=== PATIENT | female | born 1990 | race Two or more races ===

== ENCOUNTER 2017-04-21 06:44 | Inpatient (IN) | payer BC ==
[2017-04-21] MEDS ORDERED: Nalbuphine 20 MG/1 ML Amp IVPUSH PRN (06:47)
[2017-04-21] MEDS ORDERED: Sodium Chloride 0.9% 10 ML Syringe FLUSH PRN (06:47)
[2017-04-21] MEDS ORDERED: Ondansetron 4 MG/2 ML SDV IVPUSH PRN (06:47)
--- NOTE | 2017-04-21 06:56 | PCM.LDHP ---
L&D History of Present Illness - General Date of Service: 04/21/17 Admit Problem/Dx: Patient Status Order with Admit Dx/Problem 04/21/17 06:48 Patient Status [ADT] Routine Admission Diagnosis/Problem Admission Diagnosis/Problem Normal Source of Information: Patient History Limitations: Reports: No Limitations - History of Present Illness Introduction:: Patient is a 26 y/o at 39 2/7 wks who presents for elective IOL. Doing well today. No major concerns or complaints. 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 LMP (Approximate): - Past Surgical History HEENT Surgical History: Reports: Oral Surgery Female Surgical History: Reports: Breast Implant Social & Family History - Tobacco Use Smoking Status *Q: Never Smoker Second Hand Smoke Exposure: No - Alcohol Use Alcohol Use History: No Days Per Week of Alcohol Use: 0 - Recreational Drug Use Recreational Drug Use: No H&P Review of Systems - Review of Systems: Review Of Systems: See Below General: Reports: No Symptoms Pulmonary: Reports: No Symptoms Cardiovascular: Reports: No Symptoms Gastrointestinal: Reports: No Symptoms Genitourinary: Reports: No Symptoms Musculoskeletal: Reports: No Symptoms Neurological: Reports: No Symptoms L&D Exam - Exam Exam: See Below - Vital Signs Weight: 64.864 kg - OB Specific Contraction Intensity: Irritability Movement: Active Heart Tones: Present Heart Tones per Min: 140 Heart Rate (FHR) Variability: Moderate (6-25 bmp) Presentation: Vertex - Christy Score Christy Score Cervix Position: Posterior Christy Score Consistency: Soft Christy Score Effacement: 31-50% Christy Score Dilation: 1-2 cm Christy Score Infant's Station: -2 Christy Score Total: 5 - Exam General: Alert, Oriented, Cooperative Lungs: Clear to Auscultation, Normal Respiratory Effort Cardiovascular: Regular Rate, Regular Rhythm Abdomen: Soft Genitourinary: Normal external exam Extremities: Normal Inspection Skin: Warm, Dry, Intact - Patient Data Result Diagrams: 04/21/17 07:25 - Problem List (1) 39 weeks gestation of SNOMED Code(s): 13291257 ICD Code: Z3A.39 - 39 WEEKS GESTATION OF Status: Acute Current Visit: Yes (2) Elective induction of labor planned SNOMED Code(s): 842484306 ICD Code: [id number] - Status: Acute Current Visit: Yes Problem List Initiated/Reviewed/Updated: Yes Orders Last 24hrs: Active Orders 24 hr Category Date Time Status Patient Status [ADT] Routine ADT 04/21/17 06:48 Ordered Activity as Tolerated [RC] PFP Care 04/21/17 06:48 Ordered Communication Order [RC] ASDIRECTED Care 04/21/17 06:48 Ordered Communication Order [RC] ASDIRECTED Care 04/21/17 06:48 Ordered Communication Order [RC] ASDIRECTED Care 04/21/17 06:48 Ordered Heart Tones [RC] ASDIRECTED Care 04/21/17 06:48 Ordered Notify Provider [RC] ASDIRECTED Care 04/21/17 06:48 Ordered Notify Provider [RC] PRN Care 04/21/17 06:48 Ordered Peripheral IV Care [RC] . DIRECTED Care 04/21/17 06:48 Ordered Vaginal Exam [RC] ASDIRECTED Care 04/21/17 06:48 Ordered Vital Signs [RC] ASDIRECTED Care 04/21/17 06:48 Ordered Vital Signs [RC] PER UNIT ROUTINE Care 04/21/17 06:48 Ordered Regular Diet [DIET] Diet 04/21/17 Breakfast Ordered CBC W/O DIFF,HEMOGRAM [HEME] Timed Lab 04/21/17 07:45 Ordered TYPE AND SCREEN [BBK] Timed Lab 04/21/17 07:45 Ordered Lactated Ringers [Ringers, Lactated] 1,000 ml Med 04/21/17 07:00 Ordered IV ASDIRECTED Nalbuphine [Nubain] Med 04/21/17 06:47 Ordered 10 mg IVPUSH Q2H PRN Ondansetron [Zofran] Med 04/21/17 06:47 Ordered 4 mg IVPUSH Q4H PRN Oxytocin/Lactated Ringers [Pitocin in LR 10 Units/1,000 Med 04/21/17 07:00 Ordered ML] 10 unit in 1,000 ml IV TITRATE Oxytocin/Lactated Ringers [Pitocin in LR 10 Units/1,000 Med 04/21/17 07:00 Ordered ML] 10 unit in 1,000 ml IV TITRATE Sodium Chloride 0.9% [Saline Flush] Med 04/21/17 06:47 Ordered 10 ml FLUSH ASDIRECTED PRN Electronic Heart Tones Ext w TOCO [WOMSER] Oth 04/21/17 06:48 Ordered Routine Electronic Heart Tones Internal [WOMSER] Per Unit Oth 04/21/17 06:48 Ordered Routine Peripheral IV Insertion Adult [OM.PC] Routine Oth 04/21/17 06:48 Ordered Resuscitation Status Routine Resus Stat 04/21/17 06:47 Ordered Medication Orders Lactated Ringer's (Ringers, Lactated) 1,000 mls @ 40 mls/hr IV ASDIRECTED AMANDA Oxytocin/Lactated Ringer's (Pitocin In Lr 10 Units/1,000 Ml) 10 unit in 1,000 mls @ 500 mls/hr IV TITRATE AMANDA PRN Reason: Protocol Nalbuphine HCl (Nubain) 10 mg IVPUSH Q2H PRN PRN Reason: Pain (moderate 4-6) Ondansetron HCl (Zofran) 4 mg IVPUSH Q4H PRN PRN Reason: Nausea/Vomiting Sodium Chloride (Saline Flush) 10 ml FLUSH ASDIRECTED PRN PRN Reason: Keep Vein Open Assessment/Plan Comment:: 26 y/o at 39 2/7 wks presents for elective IOL * CBC and T&S * GBS negative, no need for antibiotics * Pain management per patient preference * Pitocin to start with AROM when able * Anticipate Kinsey Maurer MD
[2017-04-21] MEDS ORDERED: Oxytocin/Lactated Ringers 10 UNIT/1,000 ML BAG IV SCH ×2 (07:00)
[2017-04-21] MEDS: Lactated Ringers 1,000 ML IV SCH ×4 (07:40→15:20)
[2017-04-21] MEDS ORDERED: ePHEDrine 50 MG/ML SDV IVPUSH PRN (14:36)
[2017-04-21] MEDS ORDERED: diphenhydrAMINE 50 MG/ML SDV IVPUSH PRN (14:36)
[2017-04-21] MEDS ORDERED: fentaNYL 100 MCG/2 ML SDV EPIDUR PRN (14:36)
[2017-04-21] MEDS ORDERED: Bupivacaine/fentaNYL/NS 100 ML Bag EPIDUR SCH (14:45)
--- NOTE | 2017-04-21 15:19 | PCM.PREANE ---
Preanesthetic Assessment - Anesthesia/Transfusion/Family Hx Anesthesia History: Prior Anesthesia Without Reaction Family History of Anesthesia Reaction: No Transfusion History: No Prior Transfusion(s) - Review of Systems General: No Symptoms Pulmonary: No Symptoms Cardiovascular: No Symptoms Gastrointestinal: No symptoms Neurological: No Symptoms Other: Reports: None - Physical Assessment Pulse: 82 O2 Sat by Pulse Oximetry: 100 Respiratory Rate: 18 Blood Pressure: 108/76 Temperature: 36.7 C Vital Signs: Last Vital Signs Temp 36.7 C 04/21/17 06:48 Pulse 82 04/21/17 06:48 Resp 18 04/21/17 06:48 BP 108/76 04/21/17 06:48 Pulse Ox 100 04/21/17 06:48 Height: 1.7 m Weight: 64.864 kg ASA Class: 2 Mental Status: Alert & Oriented x3 Airway Class: Mallampati = 1 Dentition: Reports: Normal Dentition Thyro-Mental Finger Breadths: 3 Mouth Opening Finger Breadths: 3 ROM/Head Extension: Full Lungs: Clear to auscultation, Normal respiratory effort Cardiovascular: Regular Rate, Regular Rhythm, No Murmurs - Lab Values: Laboratory Last Values WBC 8.74 K/mm3 (3.98-10.04) 04/21/17 07:25 RBC 3.96 M/mm3 (3.98-5.22) L 04/21/17 07:25 Hgb 11.6 gm/L (11.2-15.7) 04/21/17 07:25 Hct 35.5 % (34.1-44.9) 04/21/17 07:25 MCV 89.6 fl (79.4-94.8) 04/21/17 07:25 MCH 29.3 pg (25.6-32.2) 04/21/17 07:25 MCHC 32.7 g/dl (32.2-35.5) 04/21/17 07:25 RDW Std Deviation 46.4 fL (36.4-46.3) H 04/21/17 07:25 Plt Count 239 K/mm3 (182-369) 04/21/17 07:25 MPV 10.2 fl (9.4-12.3) 04/21/17 07:25 Blood Type O POSITIVE 04/21/17 07:25 Gel Antibody Screen Negative 04/21/17 07:25 - Allergies Allergies/Adverse Reactions: Allergies Allergy/AdvReac Type Severity Reaction Status Date / Time No Known Allergies Allergy Verified 04/21/17 10:09 - Acknowledgements Anesthesia Type Planned: Epidural Pt an Appropriate Candidate for the Planned Anesthesia: Yes Alternatives and Risks of Anesthesia Discussed w Pt/Guardian: Yes Pt/Guardian Understands and Agrees with Anesthesia Plan: Yes 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: - Infectious Disease History Infectious Disease History: Reports: Chicken Pox - Past Surgical History HEENT Surgical History: Reports: Oral Surgery Female Surgical History: Reports: Breast Implant - SUBSTANCE USE Smoking Status *Q: Never Smoker Tobacco Use Within Last Twelve Months: No Second Hand Smoke Exposure: No Days Per Week of Alcohol Use: 0 Recreational Drug Use History: No - HOME MEDS Home Medications: Home Meds PNV95/Ferrous Fumarate/FA [ Tablet] 04/21/17 [History] - CURRENT (IN HOUSE) MEDS Current Meds: Current Medications Diphenhydramine HCl (Benadryl) 25 mg IVPUSH Q6H PRN PRN Reason: Itching Ephedrine Sulfate (Ephedrine Sulfate) 5 mg IVPUSH ASDIRECTED PRN PRN Reason: HYPOTENTSION Fentanyl (Sublimaze) 100 mcg EPIDUR Q3H PRN PRN Reason: PAIN Last Admin: 04/21/17 15:07 Dose: 100 mcg Fentanyl/Bupivacaine HCl (Fentanyl/Bupivacaine/Ns 2 Mcg-0.125% 100 Ml) 100 ml EPIDUR ASDIRECTED AMANDA Last Admin: 04/21/17 15:07 Dose: 100 ml Lactated Ringer's (Ringers, Lactated) 1,000 mls @ 40 mls/hr IV ASDIRECTED AMANDA Last Admin: 04/21/17 14:35 Dose: 40 mls/hr Oxytocin/Lactated Ringer's (Pitocin In Lr 10 Units/1,000 Ml) 10 unit in 1,000 mls @ 500 mls/hr IV TITRATE AMANDA PRN Reason: Protocol Oxytocin/Lactated Ringer's (Pitocin In Lr 10 Units/1,000 Ml) 10 unit in 1,000 mls @ 12 mls/hr IV TITRATE AMANDA; 2 MUNITS/MIN PRN Reason: Protocol Last Titration: 04/21/17 14:03 Dose: 10 munits/min, 60 mls/hr Nalbuphine HCl (Nubain) 10 mg IVPUSH Q2H PRN PRN Reason: Pain (moderate 4-6) Ondansetron HCl (Zofran) 4 mg IVPUSH Q4H PRN PRN Reason: Nausea/Vomiting Sodium Chloride (Saline Flush) 10 ml FLUSH ASDIRECTED PRN PRN Reason: Keep Vein Open
--- NOTE | 2017-04-21 15:45 | PCM.PNLD ---
Labor Progress Note - VS & Meds Vital Signs: Last Vital Signs Temp 36.7 C 04/21/17 15:18 Pulse 82 04/21/17 15:18 Resp 18 04/21/17 15:18 BP 108/76 04/21/17 15:18 Pulse Ox 100 04/21/17 15:18 Active Medications: Current Medications Diphenhydramine HCl (Benadryl) 25 mg IVPUSH Q6H PRN PRN Reason: Itching Ephedrine Sulfate (Ephedrine Sulfate) 5 mg IVPUSH ASDIRECTED PRN PRN Reason: HYPOTENTSION Fentanyl (Sublimaze) 100 mcg EPIDUR Q3H PRN PRN Reason: PAIN Last Admin: 04/21/17 15:07 Dose: 100 mcg Fentanyl/Bupivacaine HCl (Fentanyl/Bupivacaine/Ns 2 Mcg-0.125% 100 Ml) 100 ml EPIDUR ASDIRECTED AMANDA Last Admin: 04/21/17 15:07 Dose: 100 ml Lactated Ringer's (Ringers, Lactated) 1,000 mls @ 40 mls/hr IV ASDIRECTED AMANDA Last Admin: 04/21/17 15:20 Dose: 40 mls/hr Oxytocin/Lactated Ringer's (Pitocin In Lr 10 Units/1,000 Ml) 10 unit in 1,000 mls @ 500 mls/hr IV TITRATE AMANDA PRN Reason: Protocol Oxytocin/Lactated Ringer's (Pitocin In Lr 10 Units/1,000 Ml) 10 unit in 1,000 mls @ 12 mls/hr IV TITRATE AMANDA; 2 MUNITS/MIN PRN Reason: Protocol Last Titration: 04/21/17 15:23 Dose: 11 munits/min, 66 mls/hr Nalbuphine HCl (Nubain) 10 mg IVPUSH Q2H PRN PRN Reason: Pain (moderate 4-6) Ondansetron HCl (Zofran) 4 mg IVPUSH Q4H PRN PRN Reason: Nausea/Vomiting Sodium Chloride (Saline Flush) 10 ml FLUSH ASDIRECTED PRN PRN Reason: Keep Vein Open - Uterine Contractions Uterine Monitoring Mode: External [place] Contraction Intensity: Mild to Moderate - Monitoring Monitor Mode: External Ultrasound Heart Rate (FHR) Baseline: 135 Heart Rate (FHR) Variability: Moderate (6-25 bmp) Accelerations: Present, 15x15 Decelerations: None Strip Review: Category I - Vaginal Exam Dilation (cm): 3 Effacement (Percent): 80 Station: -2 Cervical Position: Posterior - Labor Progress (Free Text) Labor Progress: Doing well. AROM done with release of clear fluid. Continue pitocin per protocol
--- NOTE | 2017-04-21 18:40 | PCM.DEL ---
L & D Note - General Info Date of Service: 04/21/17 - Delivery Note Labor: induced by ARM, induced by oxytocin Delivery Outcome: Livebirth Infant Delivery Method: Spontaneous Vaginal Delivery Infant Delivery Mode: Spontaneous Presentation: Right Occiput Anterior (CARLOS) Nuchal Cord: None Anesthesia Type: Epidural Amniotic Fluid Description: Clear Episiotomy Type: None Laceration: 1st degree Suture type: vicryl Suture size: 2-0 Placenta: intact, spontaneous Cord: 3 vessels Estimated Blood Loss: 400 Resuscitation Needed: Yes [place]: Bulb Syringe, Stimulated, Warmed, [place] Used, Warmer Used Score 1 min: 8 Score 5 min: 9 Delivery Comments (Free Text/Narrative):: Patient found to be complete and began pushing. With maternal pushing effort head delivered from an CARLOS presentation. No nuchal cord present. With gentle downward traction the shoulders and body delivered. placed on maternal abdomen. Cord clamped and cut. Cord blood obtained. Placenta allowed time to separate and spontaneously expelled. Inspection of the perineum showed a 1st degree laceration which was repaired with a single interrupted suture of 2-0 vicryl. - Patient Data Vitals - most recent: Last Vital Signs Temp 36.7 C 04/21/17 15:18 Pulse 82 04/21/17 15:18 Resp 18 04/21/17 15:18 BP 108/76 04/21/17 15:18 Pulse Ox 100 04/21/17 15:18 Weight - most recent: 64.864 kg I&O - last 24 hours: Intake & Output 04/21/17 04/21/17 04/21/17 06:59 14:59 22:59 Intake Total 2120 1000 Balance 2120 1000 Lab Results last 24 hrs: Laboratory Results - last 24 hr 04/21/17 04/21/17 Range/Units 07:25 07:25 WBC 8.74 (3.98-10.04) K/mm3 RBC 3.96 L (3.98-5.22) M/mm3 Hgb 11.6 (11.2-15.7) gm/L Hct 35.5 (34.1-44.9) % MCV 89.6 (79.4-94.8) fl MCH 29.3 (25.6-32.2) pg MCHC 32.7 (32.2-35.5) g/dl RDW Std Deviation 46.4 H (36.4-46.3) fL Plt Count 239 (182-369) K/mm3 MPV 10.2 (9.4-12.3) fl Blood Type O POSITIVE Gel Antibody Screen Negative Med Orders - Current: Current Medications Diphenhydramine HCl (Benadryl) 25 mg IVPUSH Q6H PRN PRN Reason: Itching Ephedrine Sulfate (Ephedrine Sulfate) 5 mg IVPUSH ASDIRECTED PRN PRN Reason: HYPOTENTSION Fentanyl (Sublimaze) 100 mcg EPIDUR Q3H PRN PRN Reason: PAIN Last Admin: 04/21/17 15:07 Dose: 100 mcg Fentanyl/Bupivacaine HCl (Fentanyl/Bupivacaine/Ns 2 Mcg-0.125% 100 Ml) 100 ml EPIDUR ASDIRECTED AMANDA Last Admin: 04/21/17 15:07 Dose: 100 ml Lactated Ringer's (Ringers, Lactated) 1,000 mls @ 40 mls/hr IV ASDIRECTED AMANDA Last Admin: 04/21/17 15:20 Dose: 40 mls/hr Oxytocin/Lactated Ringer's (Pitocin In Lr 10 Units/1,000 Ml) 10 unit in 1,000 mls @ 500 mls/hr IV TITRATE AMANDA PRN Reason: Protocol Oxytocin/Lactated Ringer's (Pitocin In Lr 10 Units/1,000 Ml) 10 unit in 1,000 mls @ 12 mls/hr IV TITRATE AMANDA; 2 MUNITS/MIN PRN Reason: Protocol Last Titration: 04/21/17 17:55 Dose: 4 munits/min, 24 mls/hr Nalbuphine HCl (Nubain) 10 mg IVPUSH Q2H PRN PRN Reason: Pain (moderate 4-6) Ondansetron HCl (Zofran) 4 mg IVPUSH Q4H PRN PRN Reason: Nausea/Vomiting Sodium Chloride (Saline Flush) 10 ml FLUSH ASDIRECTED PRN PRN Reason: Keep Vein Open - Problem List & Annotations (1) 39 weeks gestation of SNOMED Code(s): 18683511 Code(s): Z3A.39 - 39 WEEKS GESTATION OF Status: Acute Current Visit: Yes (2) Elective induction of labor planned SNOMED Code(s): 934599086 Code(s): DUO8581 - Status: Acute Current Visit: Yes (3) Vaginal delivery SNOMED Code(s): 597105215 Code(s): O80 - ENCOUNTER FOR FULL-TERM UNCOMPLICATED DELIVERY Status: Acute Current Visit: Yes - Problem List Review Problem List Initiated/Reviewed/Updated: Yes - My Orders Last 24 Hours: My Active Orders 04/21/17 06:47 Nalbuphine [Nubain] 10 mg IVPUSH Q2H PRN Ondansetron [Zofran] 4 mg IVPUSH Q4H PRN Sodium Chloride 0.9% [Saline Flush] 10 ml FLUSH ASDIRECTED PRN Resuscitation Status Routine 04/21/17 06:48 Patient Status [ADT] Routine Activity as Tolerated [RC] PFP Communication Order [RC] ASDIRECTED Communication Order [RC] ASDIRECTED Communication Order [RC] ASDIRECTED Heart Tones [RC] ASDIRECTED Notify Provider [RC] ASDIRECTED Notify Provider [RC] PRN Peripheral IV Care [RC] . DIRECTED Vaginal Exam [RC] ASDIRECTED Vital Signs [RC] ASDIRECTED Electronic Heart Tones Ext w TOCO [WOMSER] Routine Electronic Heart Tones Internal [WOMSER] Per Unit Routine Peripheral IV Insertion Adult [OM.PC] Routine 04/21/17 07:00 Lactated Ringers [Ringers, Lactated] 1,000 ml IV ASDIRECTED Oxytocin/Lactated Ringers [Pitocin in LR 10 Units/1,000 ML] 10 unit in 1,000 ml IV TITRATE Oxytocin/Lactated Ringers [Pitocin in LR 10 Units/1,000 ML] 10 unit in 1,000 ml IV TITRATE 04/21/17 Breakfast Regular Diet [DIET] - Assessment Assessment:: 26 y/o G2 now P2002 PPD#0 from at 39 2/7 wks - Plan Plan:: * Routine cares * Encourage breast feeding * Discharge home in 1-2 days Kinsey Maurer MD
[2017-04-21] MEDS ORDERED: Ibuprofen 600 MG Tab PO PRN ×2 (20:38→20:55)
[2017-04-21] MEDS ORDERED: Docusate Sodium 100 MG Cap PO PRN ×2 (20:38→20:55)
[2017-04-21] MEDS ORDERED: Acetaminophen 325 MG Tab PO PRN (20:55)
[2017-04-21] MEDS ORDERED: Bupivacaine 0.25% 10 ML SDV ONE (20:55)
[2017-04-21] MEDS ORDERED: Witch Hazel Medicated Pads 100/Jar TOP PRN (21:42)
[2017-04-21] MEDS ORDERED: Benzocaine/Menthol 20%-0.5% Spray 56 GM Canister TOP PRN (21:43)
--- NOTE | 2017-04-22 07:10 | PCM.PNPP ---
- General Info Date of Service: 04/22/17 Functional Status: Reports: pain controlled, tolerating diet, ambulating, urinating - Review of Systems General: Reports: No Symptoms Pulmonary: Reports: no symptoms Cardiovascular: Reports: No Symptoms Gastrointestinal: Reports: No symptoms Genitourinary: Reports: no symptoms Musculoskeletal: Reports: no symptoms - Patient Data Vital Signs - most recent: Last Vital Signs Temp 36.9 C 04/21/17 20:52 Pulse 60 04/21/17 20:52 Resp 18 04/21/17 20:52 BP 123/95 H 04/21/17 20:52 Pulse Ox 99 04/21/17 20:52 Weight - most recent: 64.864 kg I&O - last 24 hours: Intake & Output 04/21/17 04/22/17 04/22/17 22:59 06:59 14:59 Intake Total 2920 Balance 2920 Lab Results - last 24 hrs: Laboratory Results - last 24 hr 04/21/17 04/21/17 Range/Units 07:25 07:25 WBC 8.74 (3.98-10.04) K/mm3 RBC 3.96 L (3.98-5.22) M/mm3 Hgb 11.6 (11.2-15.7) gm/L Hct 35.5 (34.1-44.9) % MCV 89.6 (79.4-94.8) fl MCH 29.3 (25.6-32.2) pg MCHC 32.7 (32.2-35.5) g/dl RDW Std Deviation 46.4 H (36.4-46.3) fL Plt Count 239 (182-369) K/mm3 MPV 10.2 (9.4-12.3) fl Blood Type O POSITIVE Gel Antibody Screen Negative Med Orders - Current: Current Medications Acetaminophen (Tylenol) 650 mg PO Q4H PRN PRN Reason: mild pain or fever Benzocaine/Menthol (Dermoplast Pain Relief [place]) 1 gm TOP ASDIRECTED PRN PRN Reason: Pain Last Admin: 04/21/17 22:01 Dose: 1 applic Docusate Sodium (Colace) 100 mg PO BID PRN PRN Reason: Constipation Ibuprofen (Motrin) 600 mg PO Q6H PRN PRN Reason: Mild pain or fever Witch Ching (Tucks) 1 pad TOP ASDIRECTED PRN PRN Reason: Pain Last Admin: 04/21/17 22:01 Dose: 1 applic Discontinued Medications Diphenhydramine HCl (Benadryl) 25 mg IVPUSH Q6H PRN PRN Reason: Itching Docusate Sodium (Colace) 100 mg PO BID PRN PRN Reason: Constipation Ephedrine Sulfate (Ephedrine Sulfate) 5 mg IVPUSH ASDIRECTED PRN PRN Reason: HYPOTENTSION Fentanyl (Sublimaze) 100 mcg EPIDUR Q3H PRN PRN Reason: PAIN Last Admin: 04/21/17 15:07 Dose: 100 mcg Fentanyl/Bupivacaine HCl (Fentanyl/Bupivacaine/Ns 2 Mcg-0.125% 100 Ml) 100 ml EPIDUR ASDIRECTED AMANDA Last Admin: 04/21/17 15:07 Dose: 100 ml Lactated Ringer's (Ringers, Lactated) 1,000 mls @ 40 mls/hr IV ASDIRECTED AMANDA Last Admin: 04/21/17 15:20 Dose: 40 mls/hr Oxytocin/Lactated Ringer's (Pitocin In Lr 10 Units/1,000 Ml) 10 unit in 1,000 mls @ 500 mls/hr IV TITRATE AMANDA PRN Reason: Protocol Last Admin: 04/21/17 19:15 Dose: 500 ml/hr, 500 mls/hr Oxytocin/Lactated Ringer's (Pitocin In Lr 10 Units/1,000 Ml) 10 unit in 1,000 mls @ 12 mls/hr IV TITRATE AMANDA; 2 MUNITS/MIN PRN Reason: Protocol Last Titration: 04/21/17 17:55 Dose: 4 munits/min, 24 mls/hr Ibuprofen (Motrin) 600 mg PO Q4H PRN PRN Reason: Mild pain or fever Nalbuphine HCl (Nubain) 10 mg IVPUSH Q2H PRN PRN Reason: Pain (moderate 4-6) Ondansetron HCl (Zofran) 4 mg IVPUSH Q4H PRN PRN Reason: Nausea/Vomiting Sodium Chloride (Saline Flush) 10 ml FLUSH ASDIRECTED PRN PRN Reason: Keep Vein Open - Interaction Infant Disposition, : [place] in Room with Family Interaction: Holding Feeding: Breastfed ; Nursed Well Support Person: - Recovery Exam Fundal Tone: Firm Fundal Level: 1 Fingerbreadths Below Umbilicus Fundal Placement: Midline Lochia Amount: Small Bladder Status: Voiding - Exam General: alert, oriented, cooperative Abdomen: soft, no tenderness Extremities: no edema Skin: warm, dry, intact - Problem List & Annotations (1) 39 weeks gestation of SNOMED Code(s): 44446346 Code(s): Z3A.39 - 39 WEEKS GESTATION OF Status: Acute Current Visit: Yes (2) Elective induction of labor planned SNOMED Code(s): 308326938 Code(s): MBN2096 - Status: Acute Current Visit: Yes (3) Vaginal delivery SNOMED Code(s): 365955907 Code(s): O80 - ENCOUNTER FOR FULL-TERM UNCOMPLICATED DELIVERY Status: Acute Current Visit: Yes - Problem List Review Problem List Initiated/Reviewed/Updated: Yes - My Orders Last 24 Hours: My Active Orders 04/21/17 06:47 Resuscitation Status Routine 04/21/17 20:38 Activity as Tolerated [RC] PER UNIT ROUTINE Vital Signs [RC] ASDIRECTED 04/21/17 20:55 Activity as Tolerated [RC] .PRN Vital Signs [RC] 04,12,20 Acetaminophen [Tylenol] 650 mg PO Q4H PRN Docusate Sodium [Colace] 100 mg PO BID PRN Ibuprofen [Motrin] 600 mg PO Q6H PRN Assess Lochia [WOMSER] Per Unit Routine Assess Uterine Involution [WOMSER] Per Unit Routine Breast Pump [WOMSER] Per Unit Routine Ice Therapy [OM.PC] Per Unit Routine Perineal Care [OM.PC] Per Unit Routine Peripheral IV Discontinue [OM.PC] Routine Sitz Bath [OM.PC] Per Unit Routine 04/21/17 21:00 Heat Therapy [OM.PC] PRN 04/21/17 21:42 Witch Ching [Tucks] 1 pad TOP ASDIRECTED PRN 04/21/17 21:43 Benzocaine/Menthol [Dermoplast Pain Relief [place]] 1 gm TOP ASDIRECTED PRN 04/21/17 Breakfast Regular Diet [DIET] 04/22/17 21:00 Heat Therapy [OM.PC] PRN - Assessment Assessment:: 26 y/o G2 now P2002 PPD#1 from at 39 2/7 wks - Plan Plan:: * Routine cares * Encourage breast feeding * Discharge home tomorrow Kinsey Maurer MD
--- NOTE | 2017-04-22 07:33 | PCM48HPAN ---
Post Anesthesia Note - EVALUATION WITHIN 48HRS OF ANESTHETIC Vital Signs in Normal Range: Yes Patient Participated in Evaluation: Yes Respiratory Function Stable: Yes Airway Patent: Yes Cardiovascular Function Stable: Yes Hydration Status Stable: Yes Pain Control Satisfactory: Yes Nausea and Vomiting Control Satisfactory: Yes Mental Status Recovered: Yes
--- NOTE | 2017-04-23 07:31 | PCM.PNPP ---
- General Info Date of Service: 04/23/17 Functional Status: Reports: pain controlled, tolerating diet, ambulating, urinating - Review of Systems General: Reports: No Symptoms Pulmonary: Reports: no symptoms Cardiovascular: Reports: No Symptoms Gastrointestinal: Reports: No symptoms Genitourinary: Reports: no symptoms Musculoskeletal: Reports: no symptoms - Patient Data Vital Signs - most recent: Last Vital Signs Temp 36.7 C 04/23/17 04:00 Pulse 78 04/23/17 05:24 Resp 12 04/23/17 05:24 BP 109/72 04/23/17 05:24 Pulse Ox 99 04/23/17 05:24 Weight - most recent: 64.864 kg Med Orders - Current: Current Medications Acetaminophen (Tylenol) 650 mg PO Q4H PRN PRN Reason: mild pain or fever Benzocaine/Menthol (Dermoplast Pain Relief [place]) 1 gm TOP ASDIRECTED PRN PRN Reason: Pain Last Admin: 04/21/17 22:01 Dose: 1 applic Docusate Sodium (Colace) 100 mg PO BID PRN PRN Reason: Constipation Ibuprofen (Motrin) 600 mg PO Q6H PRN PRN Reason: Mild pain or fever Witch Ching (Tucks) 1 pad TOP ASDIRECTED PRN PRN Reason: Pain Last Admin: 04/21/17 22:01 Dose: 1 applic Discontinued Medications Bupivacaine HCl (Sensorcaine-Mpf 0.25%) 10 ml .ROUTE .STK-MED ONE Stop: 04/21/17 20:56 Diphenhydramine HCl (Benadryl) 25 mg IVPUSH Q6H PRN PRN Reason: Itching Docusate Sodium (Colace) 100 mg PO BID PRN PRN Reason: Constipation Ephedrine Sulfate (Ephedrine Sulfate) 5 mg IVPUSH ASDIRECTED PRN PRN Reason: HYPOTENTSION Fentanyl (Sublimaze) 100 mcg EPIDUR Q3H PRN PRN Reason: PAIN Last Admin: 04/21/17 15:07 Dose: 100 mcg Fentanyl/Bupivacaine HCl (Fentanyl/Bupivacaine/Ns 2 Mcg-0.125% 100 Ml) 100 ml EPIDUR ASDIRECTED AMANDA Last Admin: 04/21/17 15:07 Dose: 100 ml Lactated Ringer's (Ringers, Lactated) 1,000 mls @ 40 mls/hr IV ASDIRECTED AMANDA Last Admin: 04/21/17 15:20 Dose: 40 mls/hr Oxytocin/Lactated Ringer's (Pitocin In Lr 10 Units/1,000 Ml) 10 unit in 1,000 mls @ 500 mls/hr IV TITRATE AMANDA PRN Reason: Protocol Last Admin: 04/21/17 19:15 Dose: 500 ml/hr, 500 mls/hr Oxytocin/Lactated Ringer's (Pitocin In Lr 10 Units/1,000 Ml) 10 unit in 1,000 mls @ 12 mls/hr IV TITRATE AMANDA; 2 MUNITS/MIN PRN Reason: Protocol Last Titration: 04/21/17 17:55 Dose: 4 munits/min, 24 mls/hr Ibuprofen (Motrin) 600 mg PO Q4H PRN PRN Reason: Mild pain or fever Nalbuphine HCl (Nubain) 10 mg IVPUSH Q2H PRN PRN Reason: Pain (moderate 4-6) Ondansetron HCl (Zofran) 4 mg IVPUSH Q4H PRN PRN Reason: Nausea/Vomiting Sodium Chloride (Saline Flush) 10 ml FLUSH ASDIRECTED PRN PRN Reason: Keep Vein Open - Interaction Infant Disposition, : in Room with Family Interaction: Holding Infant Infant Feeding: Breastfed ; Nursed Well Support Person: - Recovery Exam Fundal Tone: Firm Fundal Level: 2 Fingerbreadths Below Umbilicus Fundal Placement: Midline Lochia Amount: Small Lochia Color: Rubra/Red Perineum Description: Intact, Minimal Bruising/Swelling Episiotomy/Laceration: None Bladder Status: Voiding Urinary Elimination: Voided - Exam General: alert, oriented, cooperative Abdomen: soft, no tenderness Extremities: no edema Skin: warm, dry, intact - Problem List & Annotations (1) 39 weeks gestation of SNOMED Code(s): 56572331 Code(s): Z3A.39 - 39 WEEKS GESTATION OF Status: Acute Current Visit: Yes (2) Elective induction of labor planned SNOMED Code(s): 814653431 Code(s): AZY7353 - Status: Acute Current Visit: Yes (3) Vaginal delivery SNOMED Code(s): 468885694 Code(s): O80 - ENCOUNTER FOR FULL-TERM UNCOMPLICATED DELIVERY Status: Acute Current Visit: Yes - Problem List Review Problem List Initiated/Reviewed/Updated: Yes - My Orders Last 24 Hours: My Active Orders 04/22/17 21:00 Heat Therapy [OM.PC] PRN - Assessment Assessment:: 26 y/o G2 now P2002 PPD#2 from at 39 2/7 wks - Plan Plan:: * Routine cares * Encourage breast feeding * Discharge home today Kinsey Maurer MD
--- NOTE | 2017-04-23 07:34 | PCM.DCSUM1 ---
Discharge Summary - Discharge Data Discharge Date: 04/23/17 Discharge Disposition: Home, Self-Care 01 Condition: Good - Discharge Diagnosis/Problem(s) (1) 39 weeks gestation of SNOMED Code(s): 73599388 ICD Code: Z3A.39 - 39 WEEKS GESTATION OF Status: Acute Current Visit: Yes (2) Elective induction of labor planned SNOMED Code(s): 540108574 ICD Code: [id number] - Status: Acute Current Visit: Yes (3) Vaginal delivery SNOMED Code(s): 551773113 ICD Code: O80 - ENCOUNTER FOR FULL-TERM UNCOMPLICATED DELIVERY Status: Acute Current Visit: Yes - Patient Summary/Data Complications: None Consults: None Recommended Follow-up Testing/Procedures: Follow up in 5-6 weeks for check Hospital Course: 26 y/o at 39 2/7 wks presented for elective IOL. This was done with pitocin and AROM. She progressed well to complete dilation and underwent an uncomplicated . See delivery note. Post she did well and was discharged home on PPD#2. - Patient Instructions Diet: Regular Diet as Tolerated Activity: As Tolerated Activity, Other: Pelvic Rest for 6 weeks Driving: May Drive Today Showering/Bathing: May Shower Showering/Bathing, Other: May Bathe Notify Provider of: Fever, Increased Pain, Swelling and Redness, Drainage, Nausea and/or Vomiting - Discharge Plan Home Medications: Home Meds PNV95/Ferrous Fumarate/FA [ Tablet] 04/21/17 [History] Docusate Sodium [Colace] 100 mg PO BID PRN #0 cap 04/23/17 [Rx] Ibuprofen [IJD: Ibuprofen] 600 mg PO Q6H PRN #0 tablet 04/23/17 [Rx] Referrals: Kinsey Maurer MD [Primary Care Provider] - (5-6 weeks for check ) - Discharge Summary/Plan Comment DC Time >30 min.: No - Patient Data Vitals - Most Recent: Last Vital Signs Temp 36.7 C 04/23/17 04:00 Pulse 78 04/23/17 05:24 Resp 12 04/23/17 05:24 BP 109/72 04/23/17 05:24 Pulse Ox 99 04/23/17 05:24 Weight - Most Recent: 64.864 kg Med Orders - Current: Current Medications Acetaminophen (Tylenol) 650 mg PO Q4H PRN PRN Reason: mild pain or fever Benzocaine/Menthol (Dermoplast Pain Relief [place]) 1 gm TOP ASDIRECTED PRN PRN Reason: Pain Last Admin: 04/21/17 22:01 Dose: 1 applic Docusate Sodium (Colace) 100 mg PO BID PRN PRN Reason: Constipation Ibuprofen (Motrin) 600 mg PO Q6H PRN PRN Reason: Mild pain or fever Witch Ching (Tucks) 1 pad TOP ASDIRECTED PRN PRN Reason: Pain Last Admin: 04/21/17 22:01 Dose: 1 applic Discontinued Medications Bupivacaine HCl (Sensorcaine-Mpf 0.25%) 10 ml .ROUTE .STK-MED ONE Stop: 04/21/17 20:56 Diphenhydramine HCl (Benadryl) 25 mg IVPUSH Q6H PRN PRN Reason: Itching Docusate Sodium (Colace) 100 mg PO BID PRN PRN Reason: Constipation Ephedrine Sulfate (Ephedrine Sulfate) 5 mg IVPUSH ASDIRECTED PRN PRN Reason: HYPOTENTSION Fentanyl (Sublimaze) 100 mcg EPIDUR Q3H PRN PRN Reason: PAIN Last Admin: 04/21/17 15:07 Dose: 100 mcg Fentanyl/Bupivacaine HCl (Fentanyl/Bupivacaine/Ns 2 Mcg-0.125% 100 Ml) 100 ml EPIDUR ASDIRECTED AMANDA Last Admin: 04/21/17 15:07 Dose: 100 ml Lactated Ringer's (Ringers, Lactated) 1,000 mls @ 40 mls/hr IV ASDIRECTED AMANDA Last Admin: 04/21/17 15:20 Dose: 40 mls/hr Oxytocin/Lactated Ringer's (Pitocin In Lr 10 Units/1,000 Ml) 10 unit in 1,000 mls @ 500 mls/hr IV TITRATE AMANDA PRN Reason: Protocol Last Admin: 04/21/17 19:15 Dose: 500 ml/hr, 500 mls/hr Oxytocin/Lactated Ringer's (Pitocin In Lr 10 Units/1,000 Ml) 10 unit in 1,000 mls @ 12 mls/hr IV TITRATE AMANDA; 2 MUNITS/MIN PRN Reason: Protocol Last Titration: 04/21/17 17:55 Dose: 4 munits/min, 24 mls/hr Ibuprofen (Motrin) 600 mg PO Q4H PRN PRN Reason: Mild pain or fever Nalbuphine HCl (Nubain) 10 mg IVPUSH Q2H PRN PRN Reason: Pain (moderate 4-6) Ondansetron HCl (Zofran) 4 mg IVPUSH Q4H PRN PRN Reason: Nausea/Vomiting Sodium Chloride (Saline Flush) 10 ml FLUSH ASDIRECTED PRN PRN Reason: Keep Vein Open *Q Meaningful Use (DIS) - VTE *Q VTE Criteria *Q: - Stroke *Q Stroke Criteria *Q: - AMI *Q AMI Criteria *Q:
[2017-04-23 08:29] VITALS: BP 115/84
== END 2017-04-23 11:30 | disposition home or self-care (01) | DRG 560 ==
LOC: JD.OB 07:10 → OBSVTOIN 18:13 → JD.OB 18:13
PROVIDERS: ADMIT Obstetrics & Gynecology; ATTEND Obstetrics & Gynecology
PROC: 10E0XZZ Delivery of Products of Conception, External Approach (ICD-10-PCS; principal; 2017-04-21)
PROC: 3E033VJ Introduction of Other Hormone into Peripheral Vein, Percutaneous Approach (ICD-10-PCS; 2017-04-21)
PROC: 10907ZC Drainage of Amniotic Fluid, Therapeutic from Products of Conception, Via Natural or Artificial Opening (ICD-10-PCS; 2017-04-21)
PROC: 0HQ9XZZ Repair Perineum Skin, External Approach (ICD-10-PCS; 2017-04-21)
PROC: 00HU33Z Insertion of Infusion Device into Spinal Canal, Percutaneous Approach (ICD-10-PCS; 2017-04-21)
PROC: 3E0R3CZ (ICD-10-PCS; 2017-04-21)
DX: O70.0 First degree perineal laceration during delivery (principal); Z3A.39 39 weeks gestation of pregnancy; Z37.0 Single live birth
CPT/HCPCS: 01967; 36415; 85027; 86850; 86900; 86901; J2590; J3010; J7120

== ENCOUNTER 2019-12-07 00:20 | Inpatient (IN) | payer BC ==
[2019-12-07] MEDS ORDERED: Ondansetron 4 MG/2 ML SDV IVPUSH PRN (12:21)
[2019-12-07] MEDS ORDERED: Sodium Chloride 0.9% 10 ML Syringe FLUSH PRN (12:21)
[2019-12-07] MEDS ORDERED: Acetaminophen 325 MG Tab PO PRN (12:21)
--- NOTE | 2019-12-07 12:23 | PCM.LDHP ---
L&D History of Present Illness - General Date of Service: 12/07/19 Admit Problem/Dx: Patient Status Order with Admit Dx/Problem 12/07/19 12:21 Patient Status [ADT] Routine Admission Diagnosis/Problem Admission Diagnosis/Problem Source of Information: Patient History Limitations: Reports: No Limitations - History of Present Illness Introduction:: Patient is a 29 y/o at 39 1/7 wks who presents for IOL for circumvallate placenta. Doing well currently. Notes good FM. No other issues. 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 (Approximate): - Infectious Disease History Infectious Disease History: Reports: Chicken Pox - Past Surgical History HEENT Surgical History: Reports: Oral Surgery Female Surgical History: Reports: Breast Implant Social & Family History - Tobacco Use Smoking Status *Q: Former Smoker - Alcohol Use Alcohol Use History: No - Recreational Drug Use Recreational Drug Use: No H&P Review of Systems - Review of Systems: Review Of Systems: See Below General: Reports: No Symptoms Pulmonary: Reports: No Symptoms Cardiovascular: Reports: No Symptoms Gastrointestinal: Reports: No Symptoms Genitourinary: Reports: No Symptoms Musculoskeletal: Reports: No Symptoms Neurological: Reports: No Symptoms L&D Exam - Exam Exam: See Below - OB Specific Contraction Intensity: Moderate Movement: Active Heart Tones: Present Heart Tones per Min: 125 Heart Rate (FHR) Variability: Moderate (6-25 bmp) Presentation: Vertex - Christy Score Christy Score Cervix Position: Posterior Christy Score Consistency: Soft Christy Score Effacement: 31-50% Christy Score Dilation: 1-2 cm Christy Score Infant's Station: -3 Christy Score Total: 4 - Exam General: Alert, Oriented, Cooperative Lungs: Clear to Auscultation, Normal Respiratory Effort Cardiovascular: Regular Rate, Regular Rhythm GI/Abdominal Exam: Soft, Non-Tender Genitourinary: Normal external exam Extremities: Normal Inspection Skin: Warm, Dry, Intact - Patient Data Result Diagrams: 12/07/19 12:40 - Problem List (1) Circumvallate placenta SNOMED Code(s): 7996605 ICD Code: O43.119 - CIRCUMVALLATE PLACENTA, UNSPECIFIED TRIMESTER Status: Acute Current Visit: Yes Qualifiers: Trimester: third trimester Qualified Code(s): O43.113 - Circumvallate placenta, third trimester (2) 39 weeks gestation of SNOMED Code(s): 78625583 ICD Code: Z3A.39 - 39 WEEKS GESTATION OF Status: Acute Current Visit: No Problem List Initiated/Reviewed/Updated: Yes Orders Last 24hrs: Active Orders 24 hr Category Date Time Status Patient Status [ADT] Routine ADT 12/07/19 12:21 Ordered Activity as Tolerated [RC] PFP Care 12/07/19 12:21 Ordered Communication Order [RC] ASDIRECTED Care 12/07/19 12:21 Ordered Communication Order [RC] ASDIRECTED Care 12/07/19 12:21 Ordered Communication Order [RC] ASDIRECTED Care 12/07/19 12:21 Ordered Heart Tones [RC] ASDIRECTED Care 12/07/19 12:22 Ordered Non Stress Test [RC] PER UNIT ROUTINE Care 12/07/19 12:21 Ordered Notify Provider [RC] ASDIRECTED Care 12/07/19 12:21 Ordered Notify Provider [RC] PRN Care 12/07/19 12:21 Ordered Peripheral IV Care [RC] . DIRECTED Care 12/07/19 12:22 Ordered Vaginal Exam [RC] ASDIRECTED Care 12/07/19 12:21 Ordered Vital Signs [RC] PER UNIT ROUTINE Care 12/07/19 12:21 Ordered Regular Diet [DIET] Diet 12/07/19 Lunch Ordered CBC W/O DIFF,HEMOGRAM [HEME] Routine Lab 12/07/19 12:21 Ordered RAPID PLASMA REAGIN,RPR [CHEM] Routine Lab 12/07/19 12:21 Ordered TYPE AND SCREEN [BBK] Routine Lab 12/07/19 12:21 Ordered Acetaminophen [Tylenol] Med 12/07/19 12:21 Ordered 650 mg PO Q4H PRN Lactated Ringers [Ringers, Lactated] 1,000 ml Med 12/07/19 12:30 Ordered IV ASDIRECTED Ondansetron [Zofran] Med 12/07/19 12:21 Ordered 4 mg IVPUSH Q4H PRN Oxytocin/Lactated Ringers [Pitocin in LR 10 Units/1,000 Med 12/07/19 12:30 Ordered ML] 10 unit in 1,000 ml IV .CONTINUOUS Oxytocin/Lactated Ringers [Pitocin in LR 10 Units/1,000 Med 12/07/19 12:30 Ordered ML] 10 unit in 1,000 ml IV TITRATE Sodium Chloride 0.9% [Saline Flush] Med 12/07/19 12:21 Ordered 10 ml FLUSH ASDIRECTED PRN Electronic Heart Tones Ext w TOCO [WOMSER] Ot 12/07/19 12:21 Ordered Routine Electronic Heart Tones Internal [WOMSER] Per Unit Ot 12/07/19 12:21 Ordered Routine Peripheral IV Insertion Adult [OM.PC] Routine Ot 12/07/19 12:21 Ordered Assessment/Plan Comment:: 29 y/o at 39 1/7 wks who presents for IOL for circumvallate placenta * Labs * GBS negative * Pitocin to be started. AROM when able * Pain management per patient preference * Anticipate
[2019-12-07] MEDS ORDERED: Oxytocin/Lactated Ringers 10 UNIT/1,000 ML BAG IV SCH ×2 (12:30)
[2019-12-07] MEDS: Lactated Ringers 1,000 ML IV SCH ×3 (13:30→21:29)
--- NOTE | 2019-12-07 14:42 | PCM.PREANE ---
Preanesthetic Assessment - Procedure Proposed Procedure: roma - Anesthesia/Transfusion/Family Hx Anesthesia History: Prior Anesthesia Without Reaction Family History of Anesthesia Reaction: No Transfusion History: No Prior Transfusion(s) - Review of Systems General: No Symptoms Pulmonary: No Symptoms Cardiovascular: No Symptoms Gastrointestinal: No Symptoms Neurological: No Symptoms Other: Reports: None - Physical Assessment Vital Signs: 80 20 99% 104/68 Height: 5 ft 7 in Weight: 83.461 kg ASA Class: 2 Mental Status: Alert & Oriented x3 Airway Class: Mallampati = 1 Dentition: Reports: Normal Dentition Thyro-Mental Finger Breadths: 3 Mouth Opening Finger Breadths: 3 ROM/Head Extension: Full Lungs: Clear to Auscultation, Normal Respiratory Effort Cardiovascular: Regular Rate, Regular Rhythm - Lab Values: Laboratory Last Values WBC 8.58 K/mm3 (3.98-10.04) 12/07/19 12:40 RBC 4.01 M/mm3 (3.98-5.22) 12/07/19 12:40 Hgb 11.5 gm/dl (11.2-15.7) 12/07/19 12:40 Hct 35.3 % (34.1-44.9) 12/07/19 12:40 MCV 88.0 fl (79.4-94.8) 12/07/19 12:40 MCH 28.7 pg (25.6-32.2) 12/07/19 12:40 MCHC 32.6 g/dl (32.2-35.5) 12/07/19 12:40 RDW Std Deviation 46.0 fL (36.4-46.3) 12/07/19 12:40 Plt Count 300 K/mm3 (182-369) 12/07/19 12:40 MPV 9.7 fl (9.4-12.3) 12/07/19 12:40 - Allergies Allergies/Adverse Reactions: Allergies Allergy/AdvReac Type Severity Reaction Status Date / Time No Known Allergies Allergy Verified 04/21/17 10:09 - Blood Blood Available: No - Acknowledgements Anesthesia Type Planned: Epidural Pt an Appropriate Candidate for the Planned Anesthesia: Yes Alternatives and Risks of Anesthesia Discussed w Pt/Guardian: Yes Pt/Guardian Understands and Agrees with Anesthesia Plan: Yes PreAnesthesia Questionnaire - Past Health History Medical/Surgical History: Denies Medical/Surgical History Cardiovascular History: Reports: None Respiratory History: Reports: None Gastrointestinal History: Reports: GERD (with preg) 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 - Infectious Disease History Infectious Disease History: Reports: Chicken Pox - Past Surgical History HEENT Surgical History: Reports: Oral Surgery Female Surgical History: Reports: Breast Implant - SUBSTANCE USE Smoking Status *Q: Former Smoker Tobacco Use Within Last Twelve Months: No Second Hand Smoke Exposure: No Days Per Week of Alcohol Use: 0 Recreational Drug Use History: No - HOME MEDS Home Medications: Home Meds Pnv No.95/Ferrous Fum/Folic AC [ Tablet] 04/21/17 [History] Docusate Sodium [Colace] 100 mg PO BID PRN #0 cap 04/23/17 [Rx] Ibuprofen [IJD: Ibuprofen] 600 mg PO Q6H PRN #0 tablet 04/23/17 [Rx] - CURRENT (IN HOUSE) MEDS Current Meds: Current Medications Acetaminophen (Tylenol) 650 mg PO Q4H PRN PRN Reason: Pain (Mild 1-3) and fever Lactated Ringer's (Ringers, Lactated) 1,000 mls @ 40 mls/hr IV ASDIRECTED AMANDA Last Admin: 12/07/19 13:30 Dose: 40 mls/hr Oxytocin/Lactated Ringer's (Pitocin In Lr 10 Units/1,000 Ml) 10 unit in 1,000 mls @ 12 mls/hr IV TITRATE AMANDA; Protocol Last Admin: 12/07/19 13:30 Dose: 2 munits/min, 12 mls/hr Oxytocin/Lactated Ringer's (Pitocin In Lr 10 Units/1,000 Ml) 10 unit in 1,000 mls @ 500 mls/hr IV .CONTINUOUS AMANDA Ondansetron HCl (Zofran) 4 mg IVPUSH Q4H PRN PRN Reason: Nausea/Vomiting Sodium Chloride (Saline Flush) 10 ml FLUSH ASDIRECTED PRN PRN Reason: Keep Vein Open
[2019-12-07] MEDS ORDERED: fentaNYL 100 MCG/2 ML SDV EPIDUR PRN (17:59)
[2019-12-07] MEDS ORDERED: diphenhydrAMINE 50 MG/ML SDV IVPUSH PRN (17:59)
[2019-12-07] MEDS ORDERED: ePHEDrine 50 MG/ML SDV IVPUSH PRN (17:59)
[2019-12-07] MEDS ORDERED: Bupivacaine/fentaNYL/NS 100 ML Bag EPIDUR PRN (17:59)
--- NOTE | 2019-12-08 00:37 | PCM.DEL ---
L & D Note - General Info Date of Service: 12/08/19 - Delivery Note Labor: Induced by ARM, Induced by Oxytocin Delivery Outcome: Livebirth Infant Delivery Method: Spontaneous Vaginal Delivery-Single Infant Delivery Mode: Spontaneous Presentation: Right Occiput Anterior (CARLOS) Nuchal Cord: None Anesthesia Type: Epidural Amniotic Fluid Description: Clear Episiotomy Type: None Laceration: 1st Degree, Perineal Suture type: Vicryl Suture size: 2-0 Placenta: Intact, Spontaneous Cord: 3 Vessels Estimated Blood Loss: 100 Resuscitation Needed: Yes [place]: Bulb Syringe, Stimulated, Warmed, Horner Used Delivery Comments (Free Text/Narrative):: Patient found to be complete and began pushing. With maternal pushing effort head delivered from an CARLOS presentation. No nuchal cord present. With gentle downward traction shoulders and body delivered. Infant placed on maternal abdomen. Cord clamped and cut. Cord blood obtained. Placenta allowed time to separate and expelled intact. Inspection of the perineum showed a 1st degree laceration which was repaired with a 2-0 vicryl - General Info Date of Service: 12/08/19 - Patient Data Vitals - Most Recent: Last Vital Signs Temp 37.1 C 12/07/19 12:21 Pulse 76 12/07/19 12:21 Resp 17 12/07/19 12:21 BP 123/83 12/07/19 12:21 Pulse Ox 100 12/07/19 12:21 Weight - Most Recent: 83.461 kg I&O - Last 24 Hours: Intake & Output 12/07/19 12/07/19 12/08/19 14:59 22:59 06:59 Intake Total 1999 Output Total 2024 Balance 1999 -2024 Lab Results Last 24 Hours: Laboratory Results - last 24 hr 12/07/19 12/07/19 12/07/19 Range/Units 12:40 12:40 12:40 WBC 8.58 (3.98-10.04) K/mm3 RBC 4.01 (3.98-5.22) M/mm3 Hgb 11.5 (11.2-15.7) gm/dl Hct 35.3 (34.1-44.9) % MCV 88.0 (79.4-94.8) fl MCH 28.7 (25.6-32.2) pg MCHC 32.6 (32.2-35.5) g/dl RDW Std Deviation 46.0 (36.4-46.3) fL Plt Count 300 (182-369) K/mm3 MPV 9.7 (9.4-12.3) fl RPR Non-reactive (NONREACTIVE) Blood Type O POSITIVE Gel Antibody Screen Negative Med Orders - Current: Current Medications Acetaminophen (Tylenol) 650 mg PO Q4H PRN PRN Reason: Pain (Mild 1-3) and fever Diphenhydramine HCl (Benadryl) 25 mg IVPUSH Q6H PRN PRN Reason: pruritis Ephedrine Sulfate (Ephedrine Sulfate) 5 mg IVPUSH ASDIRECTED PRN PRN Reason: Hypotension Fentanyl (Sublimaze) 100 mcg EPIDUR Q3H PRN PRN Reason: Pain Last Admin: 12/07/19 18:11 Dose: 100 mcg Fentanyl/Bupivacaine HCl (Fentanyl/Bupivacaine/Ns 2 Mcg-0.125% 100 Ml) 100 ml EPIDUR ASDIRECTED PRN PRN Reason: Pain Last Admin: 12/07/19 18:11 Dose: 100 ml Lactated Ringer's (Ringers, Lactated) 1,000 mls @ 40 mls/hr IV ASDIRECTED AMANDA Last Admin: 12/07/19 21:29 Dose: 40 mls/hr Oxytocin/Lactated Ringer's (Pitocin In Lr 10 Units/1,000 Ml) 10 unit in 1,000 mls @ 12 mls/hr IV TITRATE AMANDA; Protocol Last Titration: 12/07/19 22:32 Dose: 20 munits/min, 120 mls/hr Oxytocin/Lactated Ringer's (Pitocin In Lr 10 Units/1,000 Ml) 10 unit in 1,000 mls @ 500 mls/hr IV .CONTINUOUS AMANDA Ondansetron HCl (Zofran) 4 mg IVPUSH Q4H PRN PRN Reason: Nausea/Vomiting Sodium Chloride (Saline Flush) 10 ml FLUSH ASDIRECTED PRN PRN Reason: Keep Vein Open - Problem List & Annotations (1) Circumvallate placenta SNOMED Code(s): 1321429 Code(s): O43.119 - CIRCUMVALLATE PLACENTA, UNSPECIFIED TRIMESTER Status: Acute Current Visit: Yes Qualifiers: Trimester: third trimester Qualified Code(s): O43.113 - Circumvallate placenta, third trimester (2) 39 weeks gestation of SNOMED Code(s): 00684887 Code(s): Z3A.39 - 39 WEEKS GESTATION OF Status: Acute Current Visit: No (3) Vaginal delivery SNOMED Code(s): 277333211 Code(s): O80 - ENCOUNTER FOR FULL-TERM UNCOMPLICATED DELIVERY Status: Acute Current Visit: No - Problem List Review Problem List Initiated/Reviewed/Updated: Yes - My Orders Last 24 Hours: My Active Orders 12/07/19 12:21 Patient Status [ADT] Routine Activity as Tolerated [RC] PFP Communication Order [RC] ASDIRECTED Communication Order [RC] ASDIRECTED Communication Order [RC] ASDIRECTED Notify Provider [RC] ASDIRECTED Notify Provider [RC] PRN Acetaminophen [Tylenol] 650 mg PO Q4H PRN Ondansetron [Zofran] 4 mg IVPUSH Q4H PRN Sodium Chloride 0.9% [Saline Flush] 10 ml FLUSH ASDIRECTED PRN Electronic Heart Tones Ext w TOCO [WOMSER] Routine Electronic Heart Tones Internal [WOMSER] Per Unit Routine Peripheral IV Insertion Adult [OM.PC] Routine 12/07/19 12:22 Peripheral IV Care [RC] Q2HR 12/07/19 12:30 Lactated Ringers [Ringers, Lactated] 1,000 ml IV ASDIRECTED Oxytocin/Lactated Ringers [Pitocin in LR 10 Units/1,000 ML] 10 unit in 1,000 ml IV .CONTINUOUS Oxytocin/Lactated Ringers [Pitocin in LR 10 Units/1,000 ML] 10 unit in 1,000 ml IV TITRATE 12/07/19 19:23 Pump Management, Intrathecal [RC] ASDIRECTED Urinary Catheter Assessment [RC] ASDIRECTED 12/07/19 Lunch Regular Diet [DIET] - Assessment Assessment:: PPD#0 - Plan Plan:: * Routine cares * Breast feeding * Discharge home in 1 day
[2019-12-08] MEDS ORDERED: Benzocaine/Menthol 20%-0.5% Spray 56 GM Canister TOP PRN (01:51)
[2019-12-08] MEDS ORDERED: Acetaminophen 325 MG Tab PO PRN (01:51)
[2019-12-08] MEDS ORDERED: Witch Hazel Medicated Pads 40/Jar TOP PRN (01:51)
[2019-12-08] MEDS ORDERED: Docusate Sodium 100 MG Cap PO PRN (01:51)
[2019-12-08] MEDS: Ibuprofen 600 MG Tab PO PRN ×2 (03:20→16:53)
--- NOTE | 2019-12-08 09:22 | PCM48HPAN ---
Post Anesthesia Note - EVALUATION WITHIN 48HRS OF ANESTHETIC Vital Signs in Normal Range: Yes Patient Participated in Evaluation: Yes Respiratory Function Stable: Yes Airway Patent: Yes Cardiovascular Function Stable: Yes Hydration Status Stable: Yes Pain Control Satisfactory: Yes Nausea and Vomiting Control Satisfactory: Yes Mental Status Recovered: Yes Vital Signs: Last Vital Signs Temp 36.6 C 12/08/19 03:30 Pulse 64 12/08/19 03:30 Resp 14 12/08/19 03:30 BP 120/81 12/08/19 03:30 Pulse Ox 98 12/08/19 03:30
[2019-12-09] MEDS: Ibuprofen 600 MG Tab PO PRN (06:31)
--- NOTE | 2019-12-09 06:56 | PCM.PNPP ---
- General Info Date of Service: 12/09/19 Functional Status: Reports: Pain Controlled, Tolerating Diet, Ambulating, Urinating - Review of Systems General: Reports: No Symptoms Pulmonary: Reports: No Symptoms Cardiovascular: Reports: No Symptoms Gastrointestinal: Reports: No Symptoms Genitourinary: Reports: No Symptoms Musculoskeletal: Reports: No Symptoms - Patient Data Vital Signs - Most Recent: Last Vital Signs Temp 36.3 C 12/09/19 04:10 Pulse 66 12/09/19 04:10 Resp 14 12/09/19 04:10 BP 94/75 12/09/19 04:10 Pulse Ox 99 12/09/19 04:10 Weight - Most Recent: 83.461 kg I&O - Last 24 Hours: Intake & Output 12/08/19 12/08/19 12/09/19 14:59 22:59 06:59 Intake Total 120 0 Balance 120 0 Med Orders - Current: Current Medications Acetaminophen (Tylenol) 650 mg PO Q4H PRN PRN Reason: mild pain or fever Benzocaine/Menthol (Dermoplast Pain Relief [place]) 0 gm TOP ASDIRECTED PRN PRN Reason: Perineal Comfort Measure Last Admin: 12/08/19 02:49 Dose: 1 can Docusate Sodium (Colace) 100 mg PO BID PRN PRN Reason: Constipation Last Admin: 12/08/19 02:48 Dose: 100 mg Ibuprofen (Motrin) 600 mg PO Q6H PRN PRN Reason: Mild pain or fever Last Admin: 12/09/19 06:31 Dose: 600 mg Witch Ching (Tucks) 1 pad TOP ASDIRECTED PRN PRN Reason: Perineal Comfort Measure Last Admin: 12/08/19 02:49 Dose: 1 container Discontinued Medications Acetaminophen (Tylenol) 650 mg PO Q4H PRN PRN Reason: Pain (Mild 1-3) and fever Diphenhydramine HCl (Benadryl) 25 mg IVPUSH Q6H PRN PRN Reason: pruritis Ephedrine Sulfate (Ephedrine Sulfate) 5 mg IVPUSH ASDIRECTED PRN PRN Reason: Hypotension Fentanyl (Sublimaze) 100 mcg EPIDUR Q3H PRN PRN Reason: Pain Last Admin: 12/07/19 18:11 Dose: 100 mcg Fentanyl/Bupivacaine HCl (Fentanyl/Bupivacaine/Ns 2 Mcg-0.125% 100 Ml) 100 ml EPIDUR ASDIRECTED PRN PRN Reason: Pain Last Admin: 12/07/19 18:11 Dose: 100 ml Lactated Ringer's (Ringers, Lactated) 1,000 mls @ 40 mls/hr IV ASDIRECTED AMANDA Last Admin: 12/07/19 21:29 Dose: 40 mls/hr Oxytocin/Lactated Ringer's (Pitocin In Lr 10 Units/1,000 Ml) 10 unit in 1,000 mls @ 12 mls/hr IV TITRATE AMANDA; Protocol Last Titration: 12/08/19 00:21 Dose: 999 mls/hr Oxytocin/Lactated Ringer's (Pitocin In Lr 10 Units/1,000 Ml) 10 unit in 1,000 mls @ 500 mls/hr IV .CONTINUOUS AMANDA Last Admin: 12/08/19 00:40 Dose: 999 mls/hr Ondansetron HCl (Zofran) 4 mg IVPUSH Q4H PRN PRN Reason: Nausea/Vomiting Sodium Chloride (Saline Flush) 10 ml FLUSH ASDIRECTED PRN PRN Reason: Keep Vein Open - Infant Interaction Disposition, : [place] in Room with Family Interaction: Holding Infant Feeding: Breastfed ; Nursed Well Support Person: - Recovery Exam Fundal Tone: Firm Fundal Level: 2 Fingerbreadths Below Umbilicus Fundal Placement: Midline Lochia Amount: Scant, Small Lochia Color: Rubra/Red Perineum Description: Other (see below) Other Perinuem Description: 1st degree laceration with repair Episiotomy/Laceration: Approximated Bladder Status: Voiding Urinary Elimination: Voided - Exam General: Alert, Oriented, Cooperative GI/Abdominal Exam: Soft, Non-Tender Extremities: Normal Inspection - Problem List & Annotations (1) Circumvallate placenta SNOMED Code(s): 5876606 Code(s): O43.119 - CIRCUMVALLATE PLACENTA, UNSPECIFIED TRIMESTER Status: Acute Current Visit: Yes Qualifiers: Trimester: third trimester Qualified Code(s): O43.113 - Circumvallate placenta, third trimester (2) 39 weeks gestation of SNOMED Code(s): 77756759 Code(s): Z3A.39 - 39 WEEKS GESTATION OF Status: Acute Current Visit: No (3) Vaginal delivery SNOMED Code(s): 618422420 Code(s): O80 - ENCOUNTER FOR FULL-TERM UNCOMPLICATED DELIVERY Status: Acute Current Visit: No - Problem List Review Problem List Initiated/Reviewed/Updated: Yes - My Orders Last 24 Hours: My Active Orders 12/08/19 Breakfast Regular Diet [DIET] 12/09/19 01:51 Heat Therapy [OM.PC] PRN - Assessment Assessment:: PPD#1 - Plan Plan:: * Routine cares * Breast feeding * Discharge home today
--- NOTE | 2019-12-09 06:57 | PCM.DCSUM1 ---
Discharge Summary - Discharge Data Discharge Date: 12/09/19 Discharge Disposition: Home, Self-Care 01 Condition: Good - Referral to Home Health Primary Care Physician: Kinsey Maurer MD - Discharge Diagnosis/Problem(s) (1) Circumvallate placenta SNOMED Code(s): 8878358 ICD Code: O43.119 - CIRCUMVALLATE PLACENTA, UNSPECIFIED TRIMESTER Status: Acute Current Visit: Yes Qualifiers: Trimester: third trimester Qualified Code(s): O43.113 - Circumvallate placenta, third trimester (2) 39 weeks gestation of SNOMED Code(s): 48917613 ICD Code: Z3A.39 - 39 WEEKS GESTATION OF Status: Acute Current Visit: No (3) Vaginal delivery SNOMED Code(s): 662141689 ICD Code: O80 - ENCOUNTER FOR FULL-TERM UNCOMPLICATED DELIVERY Status: Acute Current Visit: No - Patient Summary/Data Complications: None Consults: None Recommended Follow-up Testing/Procedures: Follow up in 3 weeks Hospital Course: 29 y/o at 39 1/7 wks who presented for IOL for circumvallate placenta. IOL done with pitocin and AROM. She progressed well and underwent an uncomplicated . See delivery note. she did well and was discharged home on PPD#1 - Patient Instructions Diet: Regular Diet as Tolerated Activity: As Tolerated Activity, Other: Pelvic rest for 6 weeks Driving: May Drive Today Showering/Bathing: May Shower Showering/Bathing, Other: May Bathe Notify Provider of: Fever, Increased Pain, Swelling and Redness, Drainage, Nausea and/or Vomiting - Discharge Plan *PRESCRIPTION DRUG MONITORING PROGRAM REVIEWED*: No *COPY OF PRESCRIPTION DRUG MONITORING REPORT IN PATIENT CARRIE: No Home Medications: Home Meds Pnv No.95/Ferrous Fum/Folic AC [ Tablet] 04/21/17 [History] Docusate Sodium [Colace] 100 mg PO BID PRN #0 cap 04/23/17 [Rx] Ibuprofen [IJD: Ibuprofen] 600 mg PO Q6H PRN #0 tablet 04/23/17 [Rx] Patient Handouts: Vaginal Delivery, Care After Referrals: Kinsey Maurer MD [Primary Care Provider] - (3 weeks for check ) - Discharge Summary/Plan Comment DC Time >30 min.: No - Patient Data Vitals - Most Recent: Last Vital Signs Temp 36.3 C 12/09/19 04:10 Pulse 66 12/09/19 04:10 Resp 14 12/09/19 04:10 BP 94/75 12/09/19 04:10 Pulse Ox 99 12/09/19 04:10 Weight - Most Recent: 83.461 kg I&O - Last 24 hours: Intake & Output 12/08/19 12/08/19 12/09/19 14:59 22:59 06:59 Intake Total 120 0 Balance 120 0 Med Orders - Current: Current Medications Acetaminophen (Tylenol) 650 mg PO Q4H PRN PRN Reason: mild pain or fever Benzocaine/Menthol (Dermoplast Pain Relief [place]) 0 gm TOP ASDIRECTED PRN PRN Reason: Perineal Comfort Measure Last Admin: 12/08/19 02:49 Dose: 1 can Docusate Sodium (Colace) 100 mg PO BID PRN PRN Reason: Constipation Last Admin: 12/08/19 02:48 Dose: 100 mg Ibuprofen (Motrin) 600 mg PO Q6H PRN PRN Reason: Mild pain or fever Last Admin: 12/09/19 06:31 Dose: 600 mg Witch Ching (Tucks) 1 pad TOP ASDIRECTED PRN PRN Reason: Perineal Comfort Measure Last Admin: 12/08/19 02:49 Dose: 1 container Discontinued Medications Acetaminophen (Tylenol) 650 mg PO Q4H PRN PRN Reason: Pain (Mild 1-3) and fever Diphenhydramine HCl (Benadryl) 25 mg IVPUSH Q6H PRN PRN Reason: pruritis Ephedrine Sulfate (Ephedrine Sulfate) 5 mg IVPUSH ASDIRECTED PRN PRN Reason: Hypotension Fentanyl (Sublimaze) 100 mcg EPIDUR Q3H PRN PRN Reason: Pain Last Admin: 12/07/19 18:11 Dose: 100 mcg Fentanyl/Bupivacaine HCl (Fentanyl/Bupivacaine/Ns 2 Mcg-0.125% 100 Ml) 100 ml EPIDUR ASDIRECTED PRN PRN Reason: Pain Last Admin: 12/07/19 18:11 Dose: 100 ml Lactated Ringer's (Ringers, Lactated) 1,000 mls @ 40 mls/hr IV ASDIRECTED AMANDA Last Admin: 12/07/19 21:29 Dose: 40 mls/hr Oxytocin/Lactated Ringer's (Pitocin In Lr 10 Units/1,000 Ml) 10 unit in 1,000 mls @ 12 mls/hr IV TITRATE AMANDA; Protocol Last Titration: 12/08/19 00:21 Dose: 999 mls/hr Oxytocin/Lactated Ringer's (Pitocin In Lr 10 Units/1,000 Ml) 10 unit in 1,000 mls @ 500 mls/hr IV .CONTINUOUS AMANDA Last Admin: 12/08/19 00:40 Dose: 999 mls/hr Ondansetron HCl (Zofran) 4 mg IVPUSH Q4H PRN PRN Reason: Nausea/Vomiting Sodium Chloride (Saline Flush) 10 ml FLUSH ASDIRECTED PRN PRN Reason: Keep Vein Open
[2019-12-09 09:13] VITALS: BP 119/94; PULSE 67
== END 2019-12-09 10:20 | disposition home or self-care (01) | DRG 560 ==
LOC: JD.OB 00:20 → OBSVTOIN 12-08 00:20 → JD.OB 12-08 00:21
PROVIDERS: ADMIT Obstetrics & Gynecology; ATTEND Obstetrics & Gynecology
PROC: 10E0XZZ Delivery of Products of Conception, External Approach (ICD-10-PCS; principal; 2019-12-08)
PROC: 10907ZC Drainage of Amniotic Fluid, Therapeutic from Products of Conception, Via Natural or Artificial Opening (ICD-10-PCS; 2019-12-08)
PROC: 3E033VJ Introduction of Other Hormone into Peripheral Vein, Percutaneous Approach (ICD-10-PCS; 2019-12-08)
PROC: 0HQ9XZZ Repair Perineum Skin, External Approach (ICD-10-PCS; 2019-12-08)
PROC: 3E0R3BZ Introduction of Anesthetic Agent into Spinal Canal, Percutaneous Approach (ICD-10-PCS; 2019-12-08)
DX: O43.113 Circumvallate placenta, third trimester (principal); Z3A.39 39 weeks gestation of pregnancy; Z37.0 Single live birth; Z79.899 Other long term (current) drug therapy; Z87.891 Personal history of nicotine dependence; O70.0 First degree perineal laceration during delivery
CPT/HCPCS: 01967; 36415; 51702; 59025; 59409; 85027; 86592; 86850; 86900; 86901; A9270-GY; J2590; J3010; J7120

== ENCOUNTER 2022-03-04 07:04 | Inpatient (IN) | payer BC ==
[~2022-03-04 07:04] MED LIST: Bupivacaine 0.25% 10 ML SDV ONE; Phenylephrine 1% 10 MG/ML SDV ONE; Sodium Chloride 0.9% 10 ML SDV ONE; ePHEDrine 50 MG/ML SDV ONE
[2022-03-04] MEDS ORDERED: Calcium Carbonate 500 MG Tab.Chew PO PRN (08:15)
[2022-03-04] MEDS ORDERED: Ondansetron 4 MG/2 ML SDV IVPUSH PRN (08:15)
[2022-03-04] MEDS ORDERED: Nalbuphine HCl 10 MG/ 1ML Amp IVPUSH PRN (08:15)
[2022-03-04] MEDS ORDERED: Acetaminophen 325 MG Tab PO PRN ×2 (08:15→17:17)
[2022-03-04] MEDS ORDERED: Oxytocin/Lactated Ringers 10 UNIT/1,000 ML BAG IV SCH ×2 (08:15)
[2022-03-04] MEDS: Lactated Ringers 1,000 ML IV SCH ×3 (08:18→12:14)
[2022-03-04] MEDS ORDERED: Sodium Chloride 0.9% 10 ML Syringe FLUSH SCH (09:00)
[2022-03-04] MEDS ORDERED: ePHEDrine 50 MG/ML SDV IVPUSH PRN (11:29)
[2022-03-04] MEDS ORDERED: diphenhydrAMINE 50 MG/ML SDV IVPUSH PRN (11:29)
[2022-03-04] MEDS ORDERED: fentaNYL 100 MCG/2 ML SDV EPIDUR PRN (11:29)
[2022-03-04] MEDS ORDERED: Bupivacaine/fentaNYL/NS 100 ML Bag EPIDUR PRN (11:29)
[2022-03-04] MEDS ORDERED: Ibuprofen 600 MG Tab PO PRN (17:17)
[2022-03-04] MEDS ORDERED: Witch Hazel Medicated Pads 40/Jar TOP PRN (17:17)
[2022-03-04] MEDS ORDERED: Docusate Sodium 100 MG Cap PO PRN (17:17)
[2022-03-04] MEDS ORDERED: Benzocaine/Menthol 20%-0.5% Spray 78 GM Cannister TOP PRN (17:17)
[2022-03-05 15:30] VITALS: BP 125/81; PULSE 67
== END 2022-03-05 17:25 | disposition home or self-care (01) | DRG 560 ==
LOC: JD.OB 07:04 → OBSVTOIN 16:41 → JD.OB 16:41
PROVIDERS: ADMIT Obstetrics & Gynecology; ATTEND Obstetrics & Gynecology
PROC: 10E0XZZ Delivery of Products of Conception, External Approach (ICD-10-PCS; principal; 2022-03-04)
PROC: 10907ZC Drainage of Amniotic Fluid, Therapeutic from Products of Conception, Via Natural or Artificial Opening (ICD-10-PCS; 2022-03-04)
PROC: 3E033VJ Introduction of Other Hormone into Peripheral Vein, Percutaneous Approach (ICD-10-PCS; 2022-03-04)
PROC: 0HQ9XZZ Repair Perineum Skin, External Approach (ICD-10-PCS; 2022-03-04)
PROC: 3E0R3BZ Introduction of Anesthetic Agent into Spinal Canal, Percutaneous Approach (ICD-10-PCS; 2022-03-04)
PROC: 00HU33Z Insertion of Infusion Device into Spinal Canal, Percutaneous Approach (ICD-10-PCS; 2022-03-04)
DX: O70.0 First degree perineal laceration during delivery (principal); Z3A.39 39 weeks gestation of pregnancy; Z37.0 Single live birth; Z87.891 Personal history of nicotine dependence
CPT/HCPCS: 36415; 51702; 59025; 59409; 85025; 86592; 86850; 86900; 86901; J2370; J2590; J3010; J3490; J7120